=== PATIENT | male | born 1985 ===

== ENCOUNTER 2017-02-24 16:47 | Emergency (ER) | payer OTHER ==
--- NOTE | 2017-02-24 18:45 | UC ---
Ear Complaint HPI - History of Current Complaint Chief Complaint: UCEar Stated Complaint: THROAT,EAR COMPLAINT Time Seen by Provider: 02/24/17 18:38 Hx Obtained From: Patient Onset/Duration: Sudden Onset - ear fullness over the past week after a ? cold., Lasting Weeks - 1, Still Present Severity Initially: Mild - unable to hear out of the right ear Severity Currently: Mild Aggravating Factors: Nothing Alleviating Factors: Nothing Associated Signs/Symptoms: Positive: URI Symptoms Related History: Seasonal Allergies, Smoking - Allergies/Home Medications Allergies/Adverse Reactions: Allergies Allergy/AdvReac Type Severity Reaction Status Date / Time No Known Allergies Allergy Verified 02/24/17 18:35 Home Medications: Home Medications Lisinopril TAB* [Prinivil TAB*] 5 mg PO DAILY 02/24/17 [History Confirmed ] Stool Hardner DAILY 02/24/17 [History] PMH/Surg Hx/FS Hx/Imm Hx Previously Healthy: Yes - Surgical History Surgical History: Yes Surgery Procedure, Year, and Place: gallbladder surger. Hernia. Tubes in ears as a child - Family History Known Family History: Positive: Diabetes Negative: Cardiac Disease, Hypertension - Social History Occupation: Unemployed Lives: With Family Alcohol Use: Rare Substance Use Type: None Smoking Status (MU): Heavy Every Day Tobacco Smoker Review of Systems ENT: Ear Ache, Nasal Discharge All Other Systems Reviewed And Are Negative: Yes Physical Exam Triage Information Reviewed: Yes Appearance: Well-Appearing, No Pain Distress, Well-Nourished Vital Signs: Initial Vital Signs Temp 97.8 F 02/24/17 18:31 Pulse 65 02/24/17 18:31 Resp 16 02/24/17 18:31 BP 144/91 02/24/17 18:31 Pulse Ox 97 02/24/17 18:31 Vital Signs Reviewed: Yes ENT: Positive: Pharynx normal, Nasal congestion - with allergic changes., TMs normal - on the left, Right TM retracted Neck exam: Normal Respiratory Exam: Normal Cardiovascular Exam: Normal Musculoskeletal Exam: Normal Neurological Exam: Normal Psychological Exam: Normal Skin Exam: Normal Ear Complaint Course/Dx - Differential Dx/Diagnosis Differential Diagnosis/HQI/PQRI: Otitis Externa, Otitis Media, URI Provider Diagnoses: Allergic rhinitis. Eustachian tube dysfunction. Discharge - Discharge Plan Condition: Stable Disposition: HOME Patient Education Materials: Allergies (ED) Additional Instructions: NEILMED SINUS RINSE: CHECK OUT AT [facility] Saline nasal wash helps with mucous, allergies and congestion. It can be used up to twice a day or only as needed. Use lukewarm tap water. It does not have to be sterilized or distilled water. Do 1/3 on each side and snort out of both nostrils. Repeat the process with 1/6 of the bottle on each side with snorting in between to finish the solution in the bottle Homemade saline solution, 8 oz water, 1/8 tsp sea salt and 1/8 tsp baking soda Smoking Cessation Tricks. 2. Identify triggers to smoking: after meals, on the phone, in the car, with coffee, on breaks at work, etc. 3. Formulate a plan with a behavior to replace the smoking. Fireballs in the car , doodle pad on the phone, flavored creamer for the coffee, go for a walk after a meal or on break at work. 4. For stress smokes do deep breathing relaxation. Breath deep in through the nose hold the breath in for a few seconds then breath out slowly through the mouth.
== END 2017-02-24 19:11 | disposition home or self-care (01) ==
LOC: UCCORT 16:47
DX: J30.9 Allergic rhinitis, unspecified (principal); H69.90 Unspecified Eustachian tube disorder, unspecified ear; Z90.49 Acquired absence of other specified parts of digestive tract; F17.210 Nicotine dependence, cigarettes, uncomplicated
CPT/HCPCS: 99201; G0463

== ENCOUNTER 2017-05-12 18:37 | Emergency (ER) | payer OTHER ==
[2017-05-12 19:26] VITALS: BP 138/84
[2017-05-12] MEDS ORDERED: HYDROcodone/ACETAMIN 5-325 MG* 1 TAB PO ONE (19:31)
--- NOTE | 2017-05-12 19:41 | UC ---
Dental HPI - HPI Summary HPI Summary: pateint has poor dentition, bit into a potato chip and broke the left back molar. half of the tooth is missing, gum is swollen and red - History of Current Complaint Chief Complaint: UCDentalProblem Stated Complaint: DENTAL Time Seen by Provider: 05/12/17 19:17 Hx Obtained From: Patient Onset/Duration: Sudden Onset, Lasting Hours Severity: Severe Related History: Previous Dental Care on Same Tooth, Swelling - Allergies/Home Medications Allergies/Adverse Reactions: Allergies Allergy/AdvReac Type Severity Reaction Status Date / Time No Known Allergies Allergy Verified 05/12/17 19:26 Home Medications: Home Medications Hydrochlorothiazide TAB* [Hydrodiuril TAB*] 25 mg PO DAILY 05/12/17 [History Confirmed 05/12/17] Naproxen TAB* [Naprosyn 250 mg TAB*] 500 mg PO Q8H PRN 05/12/17 [History Confirmed 05/12/17] Omeprazole CAP* [Prilosec CAP* 20 MG] 20 mg PO DAILY 05/12/17 [History Confirmed 05/12/17] PMH/Surg Hx/FS Hx/Imm Hx Previously Healthy: Yes - Surgical History Surgical History: Yes Surgery Procedure, Year, and Place: gallbladder surgery. Hernia. Tubes in ears as a child - Family History Known Family History: Positive: Diabetes Negative: Cardiac Disease, Hypertension - Social History Alcohol Use: Rare Substance Use Type: None Smoking Status (MU): Heavy Every Day Tobacco Smoker Review of Systems Constitutional: Negative Skin: Negative Eyes: Negative ENT: Dental Pain Respiratory: Negative Cardiovascular: Negative Gastrointestinal: Negative Genitourinary: Negative Motor: Negative Neurovascular: Negative Musculoskeletal: Negative Neurological: Negative Psychological: Negative Is Patient Immunocompromised?: No All Other Systems Reviewed And Are Negative: Yes Physical Exam Triage Information Reviewed: Yes Appearance: Well-Nourished, Ill-Appearing, Pain Distress Vital Signs: Initial Vital Signs Temp 98.6 F 05/12/17 19:20 Pulse 76 05/12/17 19:20 Resp 16 05/12/17 19:20 BP 138/84 05/12/17 19:20 Pulse Ox 98 05/12/17 19:20 Vital Signs Reviewed: Yes Eye Exam: Normal ENT Exam: Normal ENT: Positive: Pharyngeal erythema Dental: Positive: Gross Decay/Caries @, Dental Fracture @ Neck exam: Normal Neck: Positive: Supple, Nontender, No Lymphadenopathy Respiratory Exam: Normal Respiratory: Positive: Chest non-tender, Lungs clear, Normal breath sounds Cardiovascular Exam: Normal Cardiovascular: Positive: RRR, No Murmur, Pulses Normal Abdominal Exam: Normal Abdomen Description: Positive: Nontender, No Organomegaly, Soft Bowel Sounds: Positive: Present Musculoskeletal Exam: Normal Musculoskeletal: Positive: Strength Intact, ROM Intact, No Edema Neurological Exam: Normal Neurological: Positive: Alert, Muscle Tone Normal Psychological Exam: Normal Skin Exam: Normal Dental Complaint Course/Dx - Course Course Of Treatment: hx obtained, exam performed, meds reviewed, pain medication and abx prescribed. patient has dental appointment next week - Differential Dx/Diagnosis Differential Diagnosis/Dx: Dental Abscess, Fractured Tooth, Peridontic Disease Provider Diagnoses: fractured tooth. dental pain Discharge - Discharge Plan Condition: Stable Disposition: HOME Prescriptions: Amoxicillin PO (*) [Amoxicillin 875 MG (*)] 875 mg PO BID #13 tab HYDROcodone/ACETAMIN 5-325 MG* [[place] 5-325 TAB*] 1 tab PO Q8H PRN #12 tab MDD 3 tabs PRN Reason: Pain Patient Education Materials: Toothache (ED) Additional Instructions: take the medication as prescribed. Salt water gargle [id number] times a day eat soft foods and I would call the dentist in the morning to see if you can get in sooner.
[2017-05-12] MEDS ORDERED: Amoxicillin PO (*) 500 MG CAP PO ONE (19:56)
[2017-05-12] MEDS ORDERED: Amoxicillin PO (*) 875 MG TAB PO SCH (21:00)
== END 2017-05-12 20:07 | disposition home or self-care (01) ==
LOC: UCCORT 18:37
DX: K03.81 Cracked tooth (principal); K08.89 Other specified disorders of teeth and supporting structures; F17.210 Nicotine dependence, cigarettes, uncomplicated
CPT/HCPCS: 99213; A9270-GY; G0463